=== PATIENT | male | born 1980 | race African-American/Black ===

== ENCOUNTER 2020-04-20 20:50 | Emergency (ER) | payer OTHER ==
[~2020-04-20] VITALS: Ht 175.3 cm; Wt 68.0 kg
--- NOTE | ~2020-04-20 | EMS ---
[address] [address] EMS Patient Care Report Name: SHANTEL TREVINO Room #: DEP JENNIFER Blake#: [id number] Admission: 04/20/20 Attend Phys: Discharge: 04/20/20 Date of : 78 Report #: [id number] THIS REPORT FOR: //name// Report Transmitted: 04/21/2020 07:29 EMS Care Summary [place], [place]/[facility] Incident [id number] @ 04/20/2020 20:16 Incident Location [facility] MIS VALENTINO Patient TA TREVINO Male, 40 Years 1980 Patient Address [facility] [address] [place] [address] Patient History Gastro-Esophageal Reflux Disease (GERD),Multiple Sclerosis, Patient Allergies No known allergies, Patient Medications Cyclobenzaprine, Lyrica, Pantoprazole, Chief Complaint I think I'm having a MS flare up Disposition Transported No Lights/Hermosa Dispatch Reason Breathing Problem Transported To [facility] Narrative Called to the scene for a sick. Upon arrival, pt was BROWN x 3 sitting in the detention cell. He c/o his left leg burning sensation on the inside, cold to the touch and back pain. He is in police custody. He requests transport to the ER, [facility] is the closest one open right now. He walked to the ambulance, [address] [address] EMS Patient Care Report Name: SHANTEL TREVINO Room #: [facility].#: [id number] Admission: 04/20/20 Attend Phys: Discharge: 04/20/20 Date of : 78 Report #: [id number] climbed in and sat down w/o incident. Vitals obtained. 18g IV and D-stick. En route; no changes. RR to [facility] ER. Arrived: pt taken to ER #2 and moved to their bed w/o incident. Pt care & report to ER staff. Initial Vitals @20:30P: 83,R: 16,BP: 145/89,Pain: 10/10,GCS: 15,Glucose: 121,SpO2: 100,Revised Trauma: 12, Assessments @20:25MENTAL:Person Oriented,Time Oriented,Place Oriented,Event Oriented,SKIN:HEENT:LUNG SOUNDS:ABDOMEN:PELVIS//GI:EXTREMITIES:Left Leg: Abnormal Pulse,Left Leg: Other,Left Leg: SAMINA,Left Leg: SAMINA,Left Leg: SAMINA,Left Arm: No Abnormalities,Right Arm: No Abnormalities,Right Leg: No Abnormalities,PULSE:Radial: 2+ Normal,NEURO: Impression Extremity Pain Procedures @20:29ALS AssessmentResponse: UnchangedSucceeded@20:35Saline Lock 8cc (18 ga) Site: Forearm-RightResponse: UnchangedSucceeded@PTAPatient RestraintResponse: UnchangedSucceeded@20:30StretcherResponse: Unchanged 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,Patient Restraint,Response: UnchangedSucceeded, 20:15,Call Received 20:15,Dispatch Notified 20:16,Dispatched 20:17,En Route 20:24,On Scene 20:25,At Patient 20:29,ALS Assessment,Response: UnchangedSucceeded, 20:30,BP: 145/89 M,PULSE: 83,RR: 16 R,SPO2: 100 Ox,ETCO2: ,B,PAIN: 10,GCS: 15, 20:30,Stretcher,Response: Unchanged 20:35,Saline Lock 8cc 18 ga Site: Forearm-Right,Response: UnchangedSucceeded, 20:39,Depart Scene 20:47,At Destination 21:03,Call Closed Disclaimer v1.1 Copyright 2020 [employer] This EMS Care Summary contains data elements from the applicable legal record (which may be displayed differently). It is designed to provide pertinent information for the following purposes: continuity of care, clinical quality, and state data reporting. The complete legal [place] [address] EMS Patient Care Report Name: SHANTEL TREVINO Room #: DEP JENNIFER Blake#: [id number] Admission: 04/20/20 Attend Phys: Discharge: 04/20/20 Date of : 78 Report #: [id number] and administrators of the receiving hospital in ES's Patient Tracker. All data is provided "as is."
[2020-04-20] MEDS ORDERED: LYRICA100 MG PO (21:00)
[2020-04-20] MEDS ORDERED: PROTONIX40 M2 PO (21:00)
[2020-04-20] MEDS ORDERED: FLEXERIL PO (21:00)
[2020-04-20] MEDS ORDERED: PROTONIX40 M4 PO (21:00)
[2020-04-20 22:36] VITALS: BP 139/77
== END 2020-04-20 23:03 ==
LOC: ER 20:50
DX: G35 Multiple sclerosis (principal); R20.2 Paresthesia of skin; Z79.899 Other long term (current) drug therapy